=== PATIENT | male | born 1955 | race Caucasian/White ===

== ENCOUNTER 2021-02-20 09:17 | Inpatient (IN) | payer MEDICARE ==
[~2021-02-20] VITALS: Ht 170.1 cm; Wt 63.1 kg
[2021-02-20 09:45] LABS: BASOPHILS # (AUTO) 0.1 10^3/uL (0.0-0.1); BASOPHILS % (AUTO) 0 % (0-10); EOSINOPHILS # (AUTO) 0.3 10^3/uL (0.0-0.3); EOSINOPHILS % (AUTO) 2 % (0-10); HEMATOCRIT 41 % (40-54); HEMOGLOBIN 14.1 g/dL (13.3-17.7); LYMPHOCYTES # (AUTO) 2.6 10^3/uL (1.0-4.0); LYMPHOCYTES % (AUTO) 16 % (12-44); MEAN CORPUSCULAR HEMOGLOBIN 31 pg (25-34); MEAN CORPUSCULAR HGB CONC 35 g/dL (32-36); MEAN CORPUSCULAR VOLUME 90 fL (80-99); MEAN PLATELET VOLUME 8.2 fL (9.0-12.2); MONOCYTES # (AUTO) 1.4 10^3/uL (0.0-1.0); MONOCYTES % (AUTO) 9 % (0-12); NEUTROPHILS # (AUTO) 11.5 10^3/uL (1.8-7.8); NEUTROPHILS % (AUTO) 72 % (42-75); PLATELET COUNT 311 10^3/uL (130-400); WHITE BLOOD COUNT 15.9 10^3/uL (4.3-11.0)
[2021-02-20 09:59] LABS: ALBUMIN 4.5 GM/DL (3.2-4.5); CHLORIDE 96 MMOL/L (98-107); POTASSIUM 4.5 MMOL/L (3.6-5.0); SODIUM 131 MMOL/L (135-145)
[2021-02-20 10:00] LABS: CALCIUM 9.8 MG/DL (8.5-10.1)
[2021-02-20 10:02] LABS: GLUCOSE 97 MG/DL (70-105); TOTAL PROTEIN 8.1 GM/DL (6.4-8.2)
[2021-02-20 10:03] LABS: CARBON DIOXIDE 25 MMOL/L (21-32)
[2021-02-20 10:05] LABS: ALKALINE PHOSPHATASE 107 U/L (40-136); CREATININE SERUM 1.13 MG/DL (0.60-1.30); GFR ESTIMATED 65
[2021-02-20 10:06] LABS: BAND NEUTROPHILS 1 %; BASOPHILS % (MANUAL) 0 %; EOSINOPHILS % (MANUAL) 0 %; LYMPHOCYTES % (MANUAL) 23 %; MONOCYTES % (MANUAL) 2 %; NEUTROPHILS % (MANUAL) 74 %; RBC MORPH NORMAL
[2021-02-20 10:07] LABS: BUN/CREATININE RATIO 12
[2021-02-20 10:08] LABS: ALANINE AMINOTRANSFERASE 16 U/L (0-55); MAGNESIUM 1.9 MG/DL (1.6-2.4); SALICYLATE < 5.0 MG/DL (5.0-20.0)
[2021-02-20 10:26] LABS: BILIRUBIN,URINE NEGATIVE (NEGATIVE); CLARITY,URINE CLEAR; COLOR,URINE YELLOW; GLUCOSE, URINE (UA) NEGATIVE (NEGATIVE); KETONES,URINE 1+ (NEGATIVE); LEUKOCYTE ESTERASE ,URINE NEGATIVE (NEGATIVE); NITRITE,URINE NEGATIVE (NEGATIVE); PROTEIN,URINE NEGATIVE (NEGATIVE)
[2021-02-20 10:27] LABS: ACETAMINOPHEN < 10 UG/ML (10-30)
[2021-02-20 10:28] LABS: TSH (THYROID ANALYZER) 1.45 UIU/ML (0.35-4.94)
[2021-02-20 10:40] LABS: AMPHETAMINE SCREEN, URINE POSITIVE (NEGATIVE); BARBITURATE SCREEN URINE NEGATIVE (NEGATIVE); BENZODIAZEPINES SCREEN URINE NEGATIVE (NEGATIVE); CANNABINOID SCREEN, URINE POSITIVE (NEGATIVE); COCAINE SCREEN URINE NEGATIVE (NEGATIVE); METHADONE STAT NEGATIVE (NEGATIVE); METHAMPHETAMINE SCREEN URINE S POSITIVE (NEGATIVE); OPIATE SCREEN URINE NEGATIVE (NEGATIVE); OXYCODONE STAT NEGATIVE (NEGATIVE); PROPOXYPHENE STAT NEGATIVE (NEGATIVE); TRICYCLIC ANTIDEPRESSANTS SCRE NEGATIVE (NEGATIVE)
[2021-02-20 10:45] LABS: BACTERIA,URINE NEGATIVE /HPF; WBC,URINE RARE /HPF
[2021-02-20] MEDS ORDERED: NS IV 1000 ML 1,000 ML IV SCH (12:45)
--- NOTE | 2021-02-20 13:11 | Diagnostic Imaging Report ---
PROCEDURE: CT head and CT cervical spine without contrast. TECHNIQUE: Multiple contiguous axial images were obtained through the brain and cervical spine without the use of intravenous contrast. Sagittal and coronal reformations through the cervical spine were then performed. Auto Exposure Controls were utilized during the CT exam to meet ALARA standards for radiation dose reduction. INDICATION: Altered mental status. Correlation is made with prior head CT from 12/26/2012. CT HEAD: Ventricular size and sulcal pattern appears stable. There is prominence of the sulci consistent with cerebral and cerebellar atrophy. No sulcal effacement is seen. There is no midline shift. No acute intra-axial or extra-axial hemorrhage is detected. Cisterns are patent. Visualized paranasal sinuses are clear. IMPRESSION: Stable chronic changes. No acute intracranial process is detected. CT cervical spine: There is straightening of the normal cervical lordotic curvature. Minimal retrolisthesis C3 on C4 is noted. There is significant multilevel degenerative disc disease with significant disc space narrowing and marginal spurring at all levels. No fracture seen. Prevertebral tissues are within normal limits. Odontoid is intact. There is a cavitary mass in the left lung apex medially measuring approximately 2 cm in diameter. IMPRESSION: 1. Cervical spondylosis. No acute fractures identified. 2. 2 cm cavitary mass in the left lung apex. Dedicated CT chest would be recommended for further characterization. Dictated by: Dictated on workstation # [id number]
[2021-02-20] MEDS ORDERED: NS 100 ML (IVPB) BAG IV ONE (13:15)
[2021-02-20] MEDS ORDERED: IOHEXOL 350 MG/ML 100 ML (OMNIPAQUE 350) VIAL IV ONE (13:15)
[2021-02-20] MEDS ORDERED: HOLD METFORMIN - RECEIVED CONTRAST 20 ML VIAL IV SCH (13:15)
[2021-02-20] MEDS ORDERED: CATHETER FLUSH 10 ML SYR IV PRN (13:15)
--- NOTE | 2021-02-20 13:16 | Diagnostic Imaging Report ---
PROCEDURE: CT angiography of the head and CT angiography of the neck with and without contrast. TECHNIQUE: Contiguous noncontrast images were obtained from the skull base through the vertex. After intravenous contrast administration, helical CT angiography of the neck was performed. Source data was reformatted into 3D MIP projections. Delayed post contrast acquisition was also obtained. Auto Exposure Controls were utilized during the CT exam to meet ALARA standards for radiation dose reduction. INDICATION: Dizziness. Double vision. COMPARISON: CT head performed the same day. FINDINGS: CTA Neck: The visualized portions of the aortic arch demonstrate no evidence of aneurysm or dissection. There is conventional branching pattern of the great vessels of the aorta. The brachiocephalic artery is normal in course and caliber. The right and left common carotid origins are unremarkable. The origin of the left subclavian artery is patent. The common carotid arteries and internal carotid arteries demonstrate a normal course. There is calcified atherosclerotic plaque in the bilateral carotid bulbs and proximal internal carotid arteries without flow-limiting stenosis. No evidence of dissection in the carotid systems. The external carotid arteries are patent and unremarkable. The right vertebral artery is dominant. The origin of the right vertebral artery is seen and is unremarkable. The origin of the left vertebral artery is directly off the aorta. There is no focal stenosis seen within the neck. There is no dissection. The vertebral arteries are well visualized to up to the level of the basilar artery. The osseous structures of the cervical spine are unremarkable. A cavitary lesion is seen in the left apex measuring 2.7 x 1.5 cm. CTA brain: The intracranial portion of the bilateral ICAs have a normal appearance without focal stenosis or aneurysm. No stenosis is seen in the bilateral anterior, middle, and posterior cerebral arteries. Hypoplastic A1 segment is noted on the right. No evidence of aneurysm the [place]. The left vertebral artery ends in PICA. The right vertebral artery is well-visualized to the basilar artery. Both the right and left PICA arteries are identified. The basilar artery is normal in course and caliber. The terminal branch vessels including the superior cerebellar arteries unremarkable. IMPRESSION: 1. No stenosis or aneurysm in the [place]. No evidence of large vessel occlusion. 2. No stenosis or dissection the bilateral carotid and vertebral arteries. 3. Cavitary lesion in the left lung apex measuring 2.7 x [address] of the chest to further evaluate. Dictated by: Dictated on workstation # [id number]
--- NOTE | 2021-02-20 14:33 | ED Neurological Problem ---
General Chief Complaint: Altered Mental Status Stated Complaint: AMS Nursing Triage Note: ARRIVES VIA EMS FROM PATIENTS CAR, WHERE HE STATES HE LIVES. PATIENT C/O INCREASED BILATERAL EXTREMITY PAIN AND WEAKNESS WELL VOICE CHANGES HE STATES HAVE BEEN GETTING PROGRESSIVLY WORSE OVER THE LASST FEW WEEKS/MONTHS. Source: patient, family, old records Exam Limitations: clinical condition History of Present Illness Date Seen by Provider: Feb 20, 2021 Time Seen by Provider: 09:23 Initial Comments This 65-year-old man presents to the emergency room via EMS after being found in his car outside his brother's house this morning. He reportedly has altered mental status from his baseline and is less alert. He is unable to get up and walk on scene. Through a series of phone calls and further investigation it was discovered he had been living with his granddaughter until a few days ago. He then went to visit his brother where he began using methamphetamine. Patient does admit to having a methamphetamine addiction. 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 His granddaughter states he is able to sometimes walk with assistive devices but uses a wheelchair much of the time. He makes mention of possibly wanting to enter a long term or assisted living facility where he can get more help. EMS remarks that blood sugar is 104. Patient states he has difficulty with focusing cognitively and with his vision. Patient also complains of headache and states he fell off the porch a few days ago and bumped his right parietal region. He denies any neck pain. See nursing notes for more information about his social circumstances. Allergies and Home Medications Allergies Coded Allergies: No Known Drug Allergies (Unverified , 02/20/21) Patient Home Medication List Home Medication List Reviewed: Yes Review of Systems Review of Systems Constitutional: see HPI, weakness Eyes: No Symptoms Reported Ears, Nose, Mouth, Throat: no symptoms reported Respiratory: no symptoms reported Cardiovascular: no symptoms reported Gastrointestinal: no symptoms reported Genitourinary: no symptoms reported Musculoskeletal: no symptoms reported Skin: no symptoms reported Psychiatric/Neurological: See HPI Endocrine: No Symptoms Reported Hematologic/Lymphatic: No Symptoms Reported Past Pwuellk-Uogmrb-Ddwnvz Hx Patient Social History Tobacco Use?: Yes Tobacco type used: Cigarettes Use of E-Cig and/or Vaping dev: No Substance use?: Yes Substance type: Methamphetamine, Marijuana Alcohol Use?: No Pt feels they are or have been: No Immunizations Up To Date Influenza Vaccine Up-to-Date: No; Not Current First/Initial COVID19 Vaccinat: unk date Second COVID19 Vaccination Gaudencio: unk date COVID19 Vaccine Grade Recorder: unk Past Medical History Surgeries: Yes Tonsillectomy Respiratory: Yes COPD Cardiac: Yes Hypertension Neurological: Yes (Naima's chorea) Neuropathy Genitourinary: No Gastrointestinal: Yes Gastroesophageal Reflux Musculoskeletal: No Endocrine: No HEENT: No Cancer: No Did You Recieve Any Treatments: No Psychosocial: Yes (Polysubstance abuse) Depression Integumentary: No Physical Exam Vital Signs Vital Signs - First Documented 02/20/21 09:25 Temp 36.3 Pulse 90 Resp 20 B/P (MAP) 198/110 (139) Pulse Ox 97 O2 Delivery Room Air Capillary Refill : Less Than 3 Seconds Height, Weight, BMI Height: '" Weight: lbs. oz. kg; 23.00 BMI Method: General Appearance: WD/WN, mild distress, thin HEENT: PERRL/EOMI, other (Mucous membranes moist. 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 He does not appear to have any specific focal neurologic deficits. He does have some trouble with the quzyxr-[id number] test but he is not following instructions during that exam and is very emotionally labile. Some high amplitude dystonic movements are noted consistent with Naima's chorea.) Crainal Nerves: normal hearing, PERRL, abnormal speech (Speech dulled or slurred as compared to baseline per patient report) Coordination/Gait: ABN nose to finger (R), ABN nose to finger (L) Motor/Sensory: no sensory deficit Skin: normal color, warm/dry Progress/Results/Core Measures Results/Orders Lab Results Laboratory Tests Test 02/20/21 09:31 02/20/21 10:19 02/20/21 14:20 Range/Units White Blood Count 15.9 H 4.3-11.0 10^3/uL Red Blood Count 4.51 4.30-5.52 10^6/uL Hemoglobin 14.1 13.3-17.7 g/dL Hematocrit 41 40-54 % Mean Corpuscular Volume 90 80-99 fL Mean Corpuscular Hemoglobin 31 25-34 pg Mean Corpuscular Hemoglobin Concent 35 32-36 g/dL Red Cell Distribution Width 14.0 10.0-14.5 % Platelet Count 311 130-400 10^3/uL Mean Platelet Volume 8.2 L 9.0-12.2 fL Immature Granulocyte % (Auto) 1 % Neutrophils (%) (Auto) 72 42-75 % Lymphocytes (%) (Auto) 16 12-44 % Monocytes (%) (Auto) 9 0-12 % Eosinophils (%) (Auto) 2 0-10 % Basophils (%) (Auto) 0 0-10 % Neutrophils # (Auto) 11.5 H 1.8-7.8 10^3/uL Lymphocytes # (Auto) 2.6 1.0-4.0 10^3/uL Monocytes # (Auto) 1.4 H 0.0-1.0 10^3/uL Eosinophils # (Auto) 0.3 0.0-0.3 10^3/uL Basophils # (Auto) 0.1 0.0-0.1 10^3/uL Immature Granulocyte # (Auto) 0.1 0.0-0.1 10^3/uL Neutrophils % (Manual) 74 % Lymphocytes % (Manual) 23 % Monocytes % (Manual) 2 % Eosinophils % (Manual) 0 % Basophils % (Manual) 0 % Band Neutrophils 1 % Blood Morphology Comment NORMAL Carboxyhemoglobin 4.5 H 0.5-2.5 % Sodium Level 131 L 135-145 MMOL/L Potassium Level 4.5 3.6-5.0 MMOL/L Chloride Level 96 L 98-107 MMOL/L Carbon Dioxide Level 25 21-32 MMOL/L Anion Gap 10 5-14 MMOL/L Blood Urea Nitrogen 13 7-18 MG/DL Creatinine 1.13 0.60-1.30 MG/DL Estimat Glomerular Filtration Rate 65 BUN/Creatinine Ratio 12 Glucose Level 97 70-105 MG/DL Calcium Level 9.8 8.5-10.1 MG/DL Corrected Calcium 9.4 8.5-10.1 MG/DL Magnesium Level 1.9 1.6-2.4 MG/DL Total Bilirubin 1.0 0.1-1.0 MG/DL Aspartate Amino Transf (AST/SGOT) 29 5-34 U/L Alanine Aminotransferase (ALT/SGPT) 16 0-55 U/L Alkaline Phosphatase 107 40-136 U/L C-Reactive Protein High Sensitivity 2.21 H 0.00-0.50 MG/DL Total Protein 8.1 6.4-8.2 GM/DL Albumin 4.5 3.2-4.5 GM/DL TSH [place] Testing 1.45 0.35-4.94 UIU/ML Salicylates Level < 5.0 L 5.0-20.0 MG/DL Acetaminophen Level < 10 L 10-30 UG/ML Serum Alcohol < 10 <10 MG/DL Urine Color YELLOW Urine Clarity CLEAR Urine pH 6.0 5-9 Urine Specific [place] 1.010 L 1.016-1.022 Urine Protein NEGATIVE NEGATIVE Urine Glucose (UA) NEGATIVE NEGATIVE Urine Ketones 1+ H NEGATIVE Urine Nitrite NEGATIVE NEGATIVE Urine Bilirubin NEGATIVE NEGATIVE Urine Urobilinogen 1.0 < = 1.0 MG/DL Urine Leukocyte Esterase NEGATIVE NEGATIVE Urine RBC (Auto) NEGATIVE NEGATIVE Urine RBC NONE /HPF Urine WBC RARE /HPF Urine Crystals NONE /LPF Urine Bacteria NEGATIVE /HPF Urine Casts NONE /LPF Urine Mucus NEGATIVE /LPF Urine Culture Indicated NO Urine Opiates Screen NEGATIVE NEGATIVE Urine Oxycodone Screen NEGATIVE NEGATIVE Urine Methadone Screen NEGATIVE NEGATIVE Urine Propoxyphene Screen NEGATIVE NEGATIVE Urine Barbiturates Screen NEGATIVE NEGATIVE Ur Tricyclic Antidepressants Screen NEGATIVE NEGATIVE Urine Phencyclidine Screen NEGATIVE NEGATIVE Urine Amphetamines Screen POSITIVE H NEGATIVE Urine Methamphetamines Screen POSITIVE H NEGATIVE Urine Benzodiazepines Screen NEGATIVE NEGATIVE Urine Cocaine Screen NEGATIVE NEGATIVE Urine Cannabinoids Screen POSITIVE H NEGATIVE My Orders Orders - CANDELARIA ROSAS MD Cbc With Automated Diff (02/20/21 09:25) Comprehensive Metabolic Panel (02/20/21:25) Ua Culture If Indicated (02/20/21:25) Ed Iv/Invasive Line Start (02/20/21:25) Acetaminophen (02/20/21 09:29) Alcohol (02/20/21:29) Drug Screen Stat (Urine) (02/20/21:) Magnesium (02/20/21:29) Salicylate (02/20/21:29) Thyroid Analyzer (12/16/21 09:29) Carboxyhemoglobin (02/20/21 09:29) Manual Differential (02/20/21 09:31) Hs C Reactive Protein (02/20/21 11:14) Ct Head/Cervical Spine Wo (02/20/21 12:30) Ns Iv 1000 Ml (Sodium Chloride 0.9%) (02/20/21 12:45) Ct Angio Head/Neck (02/20/21 12:39) Iohexol Injection (Omnipaque 350 Mg/Ml 1 (02/20/21 13:15) Received Contrast (Hold Metformin- Contr (02/20/21 13:15) Sodium Chloride Flush (Catheter Flush Sy (02/20/21 13:15) Ns (Ivpb) (Sodium Chloride 0.9% Ivpb Bag (02/20/21 13:15) Tb Gold Quantiferon Plus (02/20/21 14:16) Ct Chest Wo (02/20/21 14:28) Medications Given in ED Current Medications Medications Dose Ordered Sig/Tiera Route Start Time Stop Time Status Last Admin Dose Admin Iohexol 75 ml ONCE ONCE IV 02/20/21 13:15 02/20/21 13:16 DC 02/20/21 13:05 75 ML Sodium Chloride 10 ml NEEDED PRN IV 02/20/21 13:15 02/20/21 13:05 10 ML Sodium Chloride 100 ml ONCE ONCE IV 02/20/21 13:15 02/20/21 13:16 DC 02/20/21 13:05 80 ML Vital Signs/I&O 02/20/21 09:25 Temp 36.3 Pulse 90 Resp 20 B/P (MAP) 198/110 (139) Pulse Ox 97 O2 Delivery Room Air Blood Pressure Mean: 139 Progress Progress Note #1: Time: 14:48 Progress Note Lab evaluation was relatively unremarkable except for leukocytosis of uncertain etiology. CRP was low and he was afebrile suggesting infection is not a likely cause of his leukocytosis. Patient's cognition was improving with time. IV fluids were infused. Patient is extremely emotionally labile and quite tearful at times. He admits to having a methamphetamine addiction and wants help. He thinks he needs to get away from his brothers as they are the source of his methamphetamine use. He would like some addiction treatment services and is very tearful about this. I am uncertain about his functional capacity in general and I am not sure it is safe for him to return home at this time. It is unclear how much of this is due to underlying Randall's and how much is related to methamphetamine use. CT of the head and cervical spine was unremarkable for acute injury. Because of the neurologic symptoms described, this was followed with CT angiogram of the head and neck which likewise showed no serious acute abnormalities. There was a cavitary lesion incidentally noted in the left upper lung on the CT angiogram of the neck. This is being further evaluated with CT of the chest. Case was reviewed with Dr. Lang. She and I agree admission in the short-term is a good idea to ensure stability for this patient. A QuantiFERON gold test is being run to evaluate for tuberculosis. He will be kept in precautions until this result is known. I did discuss CODE STATUS with the patient and he wishes to have a DNR status. Patient was noted to be rather hypertensive. He was given a dose of lisinopril from his home med supply. 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 I tend to agree with him given his history of Naima's chorea combined with polysubstance abuse. Progress Note #2: Time: 15:[address] scan of the chest favors sequela of prior infectious process rather than susp icion for active disease. I discussed the patient's situation and plan with his granddaughter Deepthi. She has reservations about him going to a long term because she believes they can provide him with quality care at her home and she is concerned about the care he might get in a long term. I have informed her that conversations about the best care and ancillary support services can be discussed with social work. Diagnostic Imaging Diagonstic Imaging: CT Plain Films/CT/US/NM/MRI: c-spine, head Comments CT head and cervical spine viewed by me and report reviewed. See report below: NAME: MARIA GUADALUPE CORTEZ MED REC#: [id number] PT STATUS: REG ER : 1955 PHYSICIAN: CANDELARIA ROSAS MD ADMIT DATE: 02/20/21/ER Draft Date of Exam:02/20/21 CT HEAD/CERVICAL SPINE WO PROCEDURE: CT head and CT cervical spine without contrast. TECHNIQUE: Multiple contiguous axial images were obtained through the brain and cervical spine without the use of intravenous contrast. Sagittal and coronal reformations through the cervical spine were then performed. Auto Exposure Controls were utilized during the CT exam to meet ALARA standards for radiation dose reduction. INDICATION: Altered mental status. Correlation is made with prior head CT from 12/26/2012. CT HEAD: Ventricular size and sulcal pattern appears stable. There is prominence of the sulci consistent with cerebral and cerebellar atrophy. No sulcal effacement is seen. There is no midline shift. No acute intra-axial or extra-axial hemorrhage is detected. Cisterns are patent. Visualized paranasal sinuses are clear. IMPRESSION: Stable chronic changes. No acute intracranial process is detected. CT cervical spine: There is straightening of the normal cervical lordotic curvature. Minimal retrolisthesis C3 on C4 is noted. There is significant multilevel degenerative disc disease with significant disc space narrowing and marginal spurring at all levels. No fracture seen. Prevertebral tissues are within normal limits. Odontoid is intact. There is a cavitary mass in the left lung apex medially measuring approximately 2 cm in diameter. IMPRESSION: 1. Cervical spondylosis. No acute fractures identified. 2. 2 cm cavitary mass in the left lung apex. Dedicated CT chest would be recommended for further characterization. Dictated on workstation # [id number] Dict: 02/20/21 1303 Trans: 02/20/[address] [facility] [id number] Interpreted by: ANJUM SEGURA MD Diagonstic Imaging: CT Plain Films/CT/US/NM/MRI: other (Angiogram head and neck) Comments CT angiogram head and neck viewed by me and report reviewed. See report below: NAME: MARIA GUADALUPE CORTEZ [facility] REC#: [id number] PT STATUS: REG ER : 1955 PHYSICIAN: CANDELARIA ROSAS MD ADMIT DATE: 02/20/21/ER Signed Date of Exam:02/20/21 CT ANGIO HEAD/NECK PROCEDURE: CT angiography of the head and CT angiography of the neck with and without contrast. TECHNIQUE: Contiguous noncontrast images were obtained from the skull base through the vertex. After intravenous contrast administration, helical CT angiography of the neck was performed. Source data was reformatted into 3D MIP projections. Delayed post contrast acquisition was also obtained. Auto Exposure Controls were utilized during the CT exam to meet ALARA standards for radiation dose reduction. INDICATION: Dizziness. Double vision. COMPARISON: CT head performed the same day. FINDINGS: CTA Neck: The visualized portions of the aortic arch demonstrate no evidence of aneurysm or dissection. There is conventional branching pattern of the great vessels of the aorta. The brachiocephalic artery is normal in course and caliber. The right and left common carotid origins are unremarkable. The origin of the left subclavian artery is patent. The common carotid arteries and internal carotid arteries demonstrate a normal course. There is calcified atherosclerotic plaque in the bilateral carotid bulbs and proximal internal carotid arteries without flow-limiting stenosis. No evidence of dissection in the carotid systems. The external carotid arteries are patent and unremarkable. The right vertebral artery is dominant. The origin of the right vertebral artery is seen and is unremarkable. The origin of the left vertebral artery is directly off the aorta. There is no focal stenosis seen within the neck. There is no dissection. The vertebral arteries are well visualized to up to the level of the basilar artery. The osseous structures of the cervical spine are unremarkable. A cavitary lesion is seen in the left apex measuring 2.7 x 1.5 cm. CTA brain: The intracranial portion of the bilateral ICAs have a normal appearance without focal stenosis or aneurysm. No stenosis is seen in the bilateral anterior, middle, and posterior cerebral arteries. Hypoplastic A1 segment is noted on the right. No evidence of aneurysm the [place]. The left vertebral artery ends in PICA. The right vertebral artery is well-visualized to the basilar artery. Both the right and left PICA arteries are identified. The basilar artery is normal in course and caliber. The terminal branch vessels including the superior cerebellar arteries unremarkable. IMPRESSION: 1. No stenosis or aneurysm in the [place]. No evidence of large vessel occlusion. 2. No stenosis or dissection the bilateral carotid and vertebral arteries. 3. Cavitary lesion in the left lung apex measuring 2.7 x [address] of the chest to further evaluate. Dictated by: Dictated on workstation # [id number] Dict: 02/20/21 1308 Trans: 02/20/212 [facility] [id number] Interpreted by: DAVE CHÁVEZ DO Electronically signed by: DAVE CHÁVEZ DO 02/20/212 Reviewed: Reviewed by Me Diagonstic Imaging: CT Plain Films/CT/US/NM/MRI: chest Comments NAME: MARIA GUADALUPE CORTEZ [facility] REC#: [id number] PT STATUS: REG ER : 1955 PHYSICIAN: CANDELARIA ROSAS MD ADMIT DATE: 02/20/21/ER Draft Date of Exam:02/20/21 CT CHEST WO EXAMINATION: CT chest without contrast. TECHNIQUE: Multiple contiguous axial images were obtained through the chest without the use of intravenous contrast. All CT scans use one or more of the following dose optimizing techniques: Automated exposure control, MA and/or KvP adjustment based on patient size and exam type or iterative reconstruction. HISTORY: Cavitary lung lesion. COMPARISON: None available. FINDINGS: There is no edema or pneumonia. No pleural effusion. No pneumothorax. There is a cavity in the left apex measuring 1.7 x 2.3 cm. There is mild wall thickening at the cavity. There are internal septations. Lungs are mildly emphysematous. There is no axillary or supraclavicular lymphadenopathy. There is no mediastinal lymphadenopathy. Heart size is normal. There are mild coronary artery calcifications. No pericardial effusion. Aorta is normal in caliber. Limited views of the upper abdomen are unremarkable. There is excreted contrast in the collecting systems. There are no suspicious osseous lesions. IMPRESSION: 1. Left apical cavity with mild wall thickening and internal septations. This is favored to represent sequela of a prior infection. 4-8 week follow-up is recommended to ensure stability. Dictated on workstation # [id number] Dict: 02/20/21 1451 Trans: 02/20/21 1455 [id number] Interpreted by: PETEY ARGUELLO MD Reviewed: Reviewed by Me Departure Communication (Admissions) Time/Spoke to Admitting Phy: 14:10 Dr. 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
--- NOTE | 2021-02-20 14:56 | Diagnostic Imaging Report ---
EXAMINATION: CT chest without contrast. TECHNIQUE: Multiple contiguous axial images were obtained through the chest without the use of intravenous contrast. All CT scans use one or more of the following dose optimizing techniques: Automated exposure control, MA and/or KvP adjustment based on patient size and exam type or iterative reconstruction. HISTORY: Cavitary lung lesion. COMPARISON: None available. FINDINGS: There is no edema or pneumonia. No pleural effusion. No pneumothorax. There is a cavity in the left apex measuring 1.7 x 2.3 cm. There is mild wall thickening at the cavity. There are internal septations. Lungs are mildly emphysematous. There is no axillary or supraclavicular lymphadenopathy. There is no mediastinal lymphadenopathy. Heart size is normal. There are mild coronary artery calcifications. No pericardial effusion. Aorta is normal in caliber. Limited views of the upper abdomen are unremarkable. There is excreted contrast in the collecting systems. There are no suspicious osseous lesions. IMPRESSION: 1. Left apical cavity with mild wall thickening and internal septations. This is favored to represent sequela of a prior infection. 4-8 week follow-up is recommended to ensure stability. Dictated by: Dictated on workstation # [id number]
[2021-02-20 16:04] VITALS: BP 127/78
[2021-02-20] MEDS: NS IV 1000 ML 1,000 ML IV SCH (18:15)
[2021-02-20] MEDS ORDERED: FLU QUADRIvalent (3YOA+) 60 mcg/0.5 ml 2021-22(AFLURIA) IM ONE (18:30)
[2021-02-20 20:00] VITALS: BP 160/73
[2021-02-20 23:56] VITALS: BP 153/68
[2021-02-21 04:03] VITALS: BP 173/73
[2021-02-21] MEDS: NS IV 1000 ML 1,000 ML IV SCH ×2 (04:03→16:55)
[2021-02-21 08:00] VITALS: BP 185/86
--- NOTE | 2021-02-21 09:48 | History & Physical ---
HPI History of Present Illness: 65 yo male, able to give some history but unable to give complete story. He states he is in the hospital because he was using drugs, but isn't able to say when he was last using drugs or much else about his condition. He admits occasional cough, night sweats and feeling feverish, he says he doesn't know if he has lost weight. He denies any know history of tuberculosis. Per ER notes, his family found him altered in his car after he had been with another family member and reportedly using methamphetamines. 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 Per patient, when asked about nursing facility, he did agree he wanted to go, states he doesn't want to burden his granddaughter, and he says he uses a wheelchair and is unable to transfer himself, but when asked how he was f unctioning and who was helping him for things like going to the bathroom, he stated "I don't know". Date seen by provider: Feb 21, 2021 Time Seen by Provider: 09:45 Attending Physician Umesh Lang MD PCP Consult Date of Admission Feb 20, 2021 at 14:58 Home Medications Home Medications Reviewed patient Home Medication Reconciliation performed by pharmacy medication reconciliations sugarcane research technician and/or nursing. Patients Allergies have been reviewed. Allergies Coded Allergies: No Known Drug Allergies (Unverified , 02/20/21) THJ-Apfisa-Sgmzan Hx Patient Social History Smoking Status: Current Everyday Smoker Alcohol Use?: Yes Substance type: Methamphetamine, Marijuana Tobacco type used: Cigarettes Have you traveled recently?: No Immunizations Up To Date Influenza Vaccine Up-to-Date: No; Not Current First/Initial COVID19 Vaccinat: unk date Second COVID19 Vaccination Gaudencio: unk date Third COVID19 Vaccination Date: unk date COVID19 Vaccine Instructor Modeling: unk Past Medical History PMHx: Chestnut's disease COPD HTN Chronic pain Anxiety Depression SurgHx: Tonsillectomy Family Medical History Other Significan Family Hx: Unable to obtain due to patient condition Review of Systems ([facility]) Constitutional: fever, weakness; No weight loss Respiratory: cough (baseline with COPD) Cardiovascular: No chest pain Gastrointestinal: No abdominal pain Reviewed Test Results Reviewed Test Results Lab Laboratory Tests Test 02/20/21 09:31 02/20/21 10:19 02/20/21 14:20 Range/Units White Blood Count 15.9 H 4.3-11.0 10^3/uL Red Blood Count 4.51 4.30-5.52 10^6/uL Hemoglobin 14.1 13.3-17.7 g/dL Hematocrit 41 40-54 % Mean Corpuscular Volume 90 80-99 fL Mean Corpuscular Hemoglobin 31 25-34 pg Mean Corpuscular Hemoglobin Concent 35 32-36 g/dL Red Cell Distribution Width 14.0 10.0-14.5 % Platelet Count 311 130-400 10^3/uL Mean Platelet Volume 8.2 L 9.0-12.2 fL Immature Granulocyte % (Auto) 1 % Neutrophils (%) (Auto) 72 42-75 % Lymphocytes (%) (Auto) 16 12-44 % Monocytes (%) (Auto) 9 0-12 % Eosinophils (%) (Auto) 2 0-10 % Basophils (%) (Auto) 0 0-10 % Neutrophils # (Auto) 11.5 H 1.8-7.8 10^3/uL Lymphocytes # (Auto) 2.6 1.0-4.0 10^3/uL Monocytes # (Auto) 1.4 H 0.0-1.0 10^3/uL Eosinophils # (Auto) 0.3 0.0-0.3 10^3/uL Basophils # (Auto) 0.1 0.0-0.1 10^3/uL Immature Granulocyte # (Auto) 0.1 0.0-0.1 10^3/uL Neutrophils % (Manual) 74 % Lymphocytes % (Manual) 23 % Monocytes % (Manual) 2 % Eosinophils % (Manual) 0 % Basophils % (Manual) 0 % Band Neutrophils 1 % Blood Morphology Comment NORMAL Carboxyhemoglobin 4.5 H 0.5-2.5 % Sodium Level 131 L 135-145 MMOL/L Potassium Level 4.5 3.6-5.0 MMOL/L Chloride Level 96 L 98-107 MMOL/L Carbon Dioxide Level 25 21-32 MMOL/L Anion Gap 10 5-14 MMOL/L Blood Urea Nitrogen 13 7-18 MG/DL Creatinine 1.13 0.60-1.30 MG/DL Estimat Glomerular Filtration Rate 65 BUN/Creatinine Ratio 12 Glucose Level 97 70-105 MG/DL Calcium Level 9.8 8.5-10.1 MG/DL Corrected Calcium 9.4 8.5-10.1 MG/DL Magnesium Level 1.9 1.6-2.4 MG/DL Total Bilirubin 1.0 0.1-1.0 MG/DL Aspartate Amino Transf (AST/SGOT) 29 5-34 U/L Alanine Aminotransferase (ALT/SGPT) 16 0-55 U/L Alkaline Phosphatase 107 40-136 U/L C-Reactive Protein High Sensitivity 2.21 H 0.00-0.50 MG/DL Total Protein 8.1 6.4-8.2 GM/DL Albumin 4.5 3.2-4.5 GM/DL TSH Rice Testing 1.45 0.35-4.94 UIU/ML Salicylates Level < 5.0 L 5.0-20.0 MG/DL Acetaminophen Level < 10 L 10-30 UG/ML Serum Alcohol < 10 <10 MG/DL Urine Color YELLOW Urine Clarity CLEAR Urine pH 6.0 5-9 Urine Specific [place] 1.010 L 1.016-1.022 Urine Protein NEGATIVE NEGATIVE Urine Glucose (UA) NEGATIVE NEGATIVE Urine Ketones 1+ H NEGATIVE Urine Nitrite NEGATIVE NEGATIVE Urine Bilirubin NEGATIVE NEGATIVE Urine Urobilinogen 1.0 < = 1.0 MG/DL Urine Leukocyte Esterase NEGATIVE NEGATIVE Urine RBC (Auto) NEGATIVE NEGATIVE Urine RBC NONE /HPF Urine WBC RARE /HPF Urine Crystals NONE /LPF Urine Bacteria NEGATIVE /HPF Urine Casts NONE /LPF Urine Mucus NEGATIVE /LPF Urine Culture Indicated NO Urine Opiates Screen NEGATIVE NEGATIVE Urine Oxycodone Screen NEGATIVE NEGATIVE Urine Methadone Screen NEGATIVE NEGATIVE Urine Propoxyphene Screen NEGATIVE NEGATIVE Urine Barbiturates Screen NEGATIVE NEGATIVE Ur Tricyclic Antidepressants Screen NEGATIVE NEGATIVE Urine Phencyclidine Screen NEGATIVE NEGATIVE Urine Amphetamines Screen POSITIVE H NEGATIVE Urine Methamphetamines Screen POSITIVE H NEGATIVE Urine Benzodiazepines Screen NEGATIVE NEGATIVE Urine Cocaine Screen NEGATIVE NEGATIVE Urine Cannabinoids Screen POSITIVE H NEGATIVE Radiology CT head and cervical spine 02/20/21: IMPRESSION: Stable chronic changes. No acute intracranial process is detected. IMPRESSION: 1. Cervical spondylosis. No acute fractures identified. 2. 2 cm cavitary mass in the left lung apex. Dedicated CT chest would be saul mmended for further characterization. CT chest 02/20/21: IMPRESSION: 1. Left apical cavity with mild wall thickening and internal septations. This is favored to represent sequela of a prior infection. 4-8 week follow-up is recommended to ensure stability. CTA head 02/20/21: IMPRESSION: 1. No stenosis or aneurysm in the [place]. No evidence of large vessel occlusion. 2. No stenosis or dissection the bilateral carotid and vertebral arteries. 3. Cavitary lesion in the left lung apex measuring 2.7 x [address] of the chest to further evaluate. Physical Exam-([facility]) Physical Exam Vital Signs VS - Last 72 Hours, by Label 02/20/21 02/20/21 02/20/21 02/20/21 09:25 16:04 16:05 16:32 Temp 36.3 37.3 36.0 Pulse 90 68 75 Resp 20 16 18 B/P (MAP) 198/110 (139) 127/78 (94) 162/77 Pulse Ox 97 98 98 98 O2 Delivery Room Air Room Air Room Air Room Air 02/20/21 02/20/21 02/20/21 02/20/21 18:21 19:00 20:00 20:00 Pulse 76 68 65 Resp 18 B/P (MAP) 160/73 (102) Pulse Ox 98 98 O2 Delivery Room Air Room Air 02/20/21 02/21/21 02/21/21 02/21/21 23:56 01:00 04:03 07:00 Temp 37.3 36.8 Pulse 63 55 60 55 Resp 18 18 B/P (MAP) 153/68 (96) 173/73 (106) Pulse Ox 100 96 O2 Delivery Room Air Room Air 02/21/21 02/21/21 02/21/21 08:00 12:00 12:36 Temp 36.7 36.9 Pulse 53 57 54 Resp 18 18 B/P (MAP) 185/86 (119) 163/73 (103) Pulse Ox 96 98 O2 Delivery Room Air Room Air Capillary Refill : Less Than 3 Seconds General Appearance: no apparent distress HEENT: PERRL/EOMI Respiratory: lungs clear, no respiratory distress Cardiovascular: regular rate, rhythm, no murmur Gastrointestinal: normal bowel sounds, non tender, soft Extremities: no pedal edema Neurologic/Psychiatric: other (CN II-XII intact, has difficulty with abducting left arm but is able with some effort. Laying in awkward position with head tilted markedly to right and is unable to straighten well. 4/5 strength in raising legs off of bed.) Skin: warm/dry Assessment/Plan Assessment/Plan Admission Status: Observation (1) Altered mental status Status: Acute Assessment & Plan: Suspect secondary to substance use, appears to be improving, unclear what baseline is, but he is able to state name, location and basically why he is in the hospital this morning. Qualifiers: Qualified Codes: R41.82 - Altered mental status, unspecified (2) COPD (chronic obstructive pulmonary disease) Status: Chronic Assessment & Plan: No evidence of acute exacerbation, monitor, resume home albuterol (3) Hypertension Status: Chronic Assessment & Plan: Resume home lisinopril Qualifiers: Qualified Codes: I10 - Essential (primary) hypertension (4) Anxiety Status: Chronic Assessment & Plan: Hold home alprazolam for now given altered mental status (5) Chronic pain Status: Chronic Assessment & Plan: Holding home hydrocodone due to altered mental status (6) Huntingtons chorea Status: Acute (7) Polysubstance abuse Status: Acute Assessment & Plan: Urine drug screen positive for methamphetamines on admit. Prescribed opiates and benzodiazepines outpatient. (8) Cavitary lesion of lung Status: Acute Assessment & Plan: Unclear etiology, may be post-infectious, but given risks for tb and some symptoms, will check sputum and quantiferon gold. (9) Generalized weakness Status: Chronic Assessment & Plan: PT, he is still reporting interest in [facility] nursing facility placement, discussed with licensed clinical social worker. (10) DVT prophylaxis Status: Acute Assessment & Plan: Enoxaparin UMESH LANG MD Feb 21, 2021 09:48
[2021-02-21 12:00] VITALS: BP 163/73
[2021-02-21] MEDS ORDERED: GBPN600T PO (13:53)
[2021-02-21] MEDS ORDERED: OXYB-52 PO (13:53)
[2021-02-21] MEDS ORDERED: MELO15TA39 PO (13:53)
[2021-02-21] MEDS ORDERED: ALPR0.5T7 PO (13:53)
[2021-02-21] MEDS ORDERED: HYDR-3817 PO (13:53)
[2021-02-21] MEDS ORDERED: LISI10TA25 PO (13:53)
[2021-02-21] MEDS ORDERED: TRAZ150T72 PO (13:53)
[2021-02-21] MEDS ORDERED: ALBU18HF2 INH (13:53)
[2021-02-21] MEDS ORDERED: OMEP20CA18 PO (13:53)
[2021-02-21] MEDS ORDERED: RT-ALBUTEROL SULF 2.5 MG/3 ML PRE-MIX VIAL INH PRN (15:00)
[2021-02-21 15:25] VITALS: BP 183/81
--- NOTE | 2021-02-21 15:35 | Physical Therapy Evaluation ---
PT Evaluation-General Medical Diagnosis Admission Date Feb 20, 2021 at 14:58 Medical Diagnosis: AMS, COPD Onset Date: Feb 20, 2021 Therapy Diagnosis Therapy Diagnosis: impaired mobility, strength, endurance, balance Precautions Precautions/Isolations: Airborne Isolation, Fall Prevention, Pressure Ulcer Referral Physician: Rickey Reason for Referral: Evaluation/Treatment Medical History Additional Medical History PMHx: Schleicher's disease COPD HTN Chronic pain Anxiety Depression SurgHx: Tonsillectomy Reviewed History: Yes Social History unknown Prior Prior Level of Function SCALE: Activities may be completed with or without assistive devices. 3-Eoohihsjte-mmczprt completes the activity by him/herself with no assistance from a helper. 5-Set-up or Clean-up Assistance-helper sets up or cleans up; patient completes activity. [place] assists only prior to or following the activity. 4-Supervision or Touching Assistance-helper provides verbal cues and/or touching/steadying and/or contact guard assistance as patient completes activity. Assistance may be provided throughout the activity or intermittently. 3-Partial/Moderate Assistance-helper does LESS THAN HALF the effort. [place] lifts, holds or supports trunk or limbs, but provides less than half the effort. 2-Substantial/Maximal Assistance-helper does MORE THAN HALF the effort. [place] lifts or holds trunk or limbs and provides more than half the effort. 2-Cllmkqyoj-rcfygx does ALL the effort. Patient does none of the effort to complete the activity. Or, the assistance of 2 or more helpers is required for the patient to complete the activity. If activity was not attempted, code reason: 7-Patient Refused. 9-Not Applicable-not attempted and the patient did not perform the activity before the current illness, exacerbation or injury. 10-Not Attempted due to Environmental Limitations-(lack of equipment, weather restraints, etc.). 88-Not Attempted due to Medical Conditions or Safety Concerns. unknown PT Evaluation-Current Subjective Patient sitting EOB pre tx, agrees to PT, has unrated pain in feet. Nurse aide is currently changing him and the bed due to urine. Pt/Family Goals none stated Objective Patient Orientation: Person, Confused, Mumbles Attachments: IV ROM/Strength ROM Lower Extremities WNL Transfers Roll Left to Right (QC): 6 Sit to Lying (QC): 6 Lying to Sitting/Side of Bed(Q: 6 Sit to Stand (QC): 3 Patient refuses to get into a chair, states he can't stand up but then stands up with min assist to pull up his underwear. Patient states he is wheelchair bound, nurse reports he ambulated to the restroom. He lays down independently. Balance Sitting Static: Good Sitting Dynamic: Good Standing Static: Poor Standing Dynamic: Poor Assessment/Needs Patient has impaired mobility, strength, endurance, balance. Patient in bed post tx with nurse aide still in the room. Patient has difficulty communicating or following directions, he needs min assist to stand, refuses out of bed activity. Rehab Potential: Poor PT [facility] Goals [facility] Goals PT Braille Translator Goals Time Frame: Feb 28, 2021 Roll Left & Right (QC): 6 Sit to Lying (QC): 6 Lying-Sitting on Side/Bed(QC): 6 Sit to Stand (QC): 3 Chair/Won-yz-Eovte Xfer(QC): 3 PT Plan Problem List Problem List: Activity Tolerance, Functional Strength, Safety, Balance, Gait, Transfer, Bed Mobility, ROM Treatment/Plan Treatment Plan: Continue Plan of Care Treatment Plan: Bed Mobility, Education, Functional Activity Sherly, Functional Strength, Safety, Therapeutic Exercise, Transfers Treatment Duration: Feb 28, 2021 Frequency: 6 times per week Estimated Hrs Per Day: .25 hour per day Patient and/or Family Agrees t: Yes Safety Risks/Education Patient Education: Correct Positioning, Safety Issues Teaching Recipient: Patient Teaching Methods: Demonstration, Discussion Response to Teaching: Reinforcement Needed Discharge Recommendations Plan Patient will perform bed mobility and transfer training, balance and endurance training, functional strengthening, gait training, and education, to improve functional mobility and independence at home. Therapy Discharge Recommendati: 24 Hour Supervision Time/GCodes Time In: 1515 Time Out: 1528 Total Billed Treatment Time: 13 Total Billed Treatment 1 visit STEFAN PRINCE PT Feb 21, 2021 15:35
[2021-02-21] MEDS: ENOXAPARIN 40 MG/0.4 ML (LOVENOX) SYR SQ SCH (16:55)
[2021-02-21] MEDS ORDERED: NICOTINE 21 MG (NICODERM) PATCH TD NR (17:30)
[2021-02-21] MEDS: ACETAMINOPHEN 500 MG TAB (TYLENOL) PO PRN (18:02)
[2021-02-21] MEDS ORDERED: ARTIFICAL TEARS 0.4 ML UNIT DOSE (REFRESH PLUS) OD PRN (19:00)
[2021-02-21 20:52] VITALS: BP 186/91
[2021-02-21] MEDS ORDERED: OMEPRAZOLE 20 MG (PriLOSEC) CAP NON-FORMULARY PO SCH (21:00)
[2021-02-21] MEDS: GABAPENTIN 600 MG (NEURONTIN) TAB PO SCH (21:32)
[2021-02-21] MEDS: PANTOPRAZOLE 20 MG TABLET (PROTONIX) PO SCH (21:33)
[2021-02-21] MEDS ORDERED: lisINopril 10 MG (PRINIVIL) TABLET PO ONE (22:30)
[2021-02-22] VITALS (7 sets, daily range): BP systolic 146–189; BP diastolic 71–90
[2021-02-22] MEDS: NS IV 1000 ML 1,000 ML IV SCH ×3 (02:59→14:52)
[2021-02-22 07:06] LABS: HEMATOCRIT 36 % (40-54); HEMOGLOBIN 12.6 g/dL (13.3-17.7); MEAN CORPUSCULAR HEMOGLOBIN 31 pg (25-34); MEAN CORPUSCULAR HGB CONC 35 g/dL (32-36); MEAN CORPUSCULAR VOLUME 90 fL (80-99); MEAN PLATELET VOLUME 9.1 fL (9.0-12.2); PLATELET COUNT 295 10^3/uL (130-400); WHITE BLOOD COUNT 9.6 10^3/uL (4.3-11.0)
[2021-02-22 07:25] LABS: ALBUMIN 3.7 GM/DL (3.2-4.5); BILIRUBIN,TOTAL 0.4 MG/DL (0.1-1.0); CALCIUM 9.1 MG/DL (8.5-10.1); CREATININE SERUM 0.95 MG/DL (0.60-1.30); POTASSIUM 3.7 MMOL/L (3.6-5.0); TOTAL PROTEIN 6.6 GM/DL (6.4-8.2)
[2021-02-22] MEDS ORDERED: NON-FORMULARY MEDICATION 1 EA EA (Meloxicam 15 MG) PO SCH (09:00)
[2021-02-22] MEDS ORDERED: lisINopril 10 MG (PRINIVIL) TABLET PO SCH (09:00)
[2021-02-22] MEDS: MELOXICAM 7.5 MG (MOBIC) TABLET PO SCH (09:44)
[2021-02-22] MEDS: lisINopril 10 MG (PRINIVIL) TABLET PO SCH (09:44)
[2021-02-22] MEDS: GABAPENTIN 600 MG (NEURONTIN) TAB PO SCH ×3 (09:44→20:50)
[2021-02-22] MEDS: NICOTINE PATCH REMOVAL TP SCH (09:46)
[2021-02-22] MEDS: NICOTINE 21 MG (NICODERM) PATCH TD SCH (09:46)
--- NOTE | 2021-02-22 12:09 | Physical Therapy Daily Note ---
PT Daily Note-Current Subjective Pt. in bed, initially resistive to Rx but with encouragement pt. agrees to bed ex and sit EOB and standing. Pt very emotional speaking of family and his family history of Huntingtons disease and that he hopes no one else in his family dies from it and that his grandchildren dont have it "None of them will see me or talk to me" Pain Location: No Pain Reported Mental Status Patient Orientation: Person Transfers SCALE: Activities may be completed with or without assistive devices. 9-Kfumuubytw-hsvzrbl completes the activity by him/herself with no assistance from a helper. 5-Set-up or Clean-up Assistance-helper sets up or cleans up; patient completes activity. [place] assists only prior to or following the activity. 4-Supervision or Touching Assistance-helper provides verbal cues and/or touching/steadying and/or contact guard assistance as patient completes activity. Assistance may be provided throughout the activity or intermittently. 3-Partial/Moderate Assistance-helper does LESS THAN HALF the effort. [place] lifts, holds or supports trunk or limbs, but provides less than half the effort. 2-Substantial/Maximal Assistance-helper does MORE THAN HALF the effort. [place] lifts or holds trunk or limbs and provides more than half the effort. 1-Dqgovopds-fymjqf does ALL the effort. Patient does none of the effort to complete the activity. Or, the assistance of 2 or more helpers is required for the patient to complete the activity. If activity was not attempted, code reason: 7-Patient Refused. 9-Not Applicable-not attempted and the patient did not perform the activity before the current illness, exacerbation or injury. 10-Not Attempted due to Environmental Limitations-(lack of equipment, weather restraints, etc.). 88-Not Attempted due to Medical Conditions or Safety Concerns. sup to sit and sit to stand all CGA Gait Training pt. ambulated dance fashion 3-4 steps at bedside back and forth with min assist Exercises Supine Ex: Ankle pumps, Rolling, Heel Slides, Straight leg raise, Hip abd/add Supine Reps: 12 Seated Therapy Exercises: Sit to stand, Long arc quads Seated Reps: 10 Assessment Current Status: Good Progress PT Shelter Goals Test Architect Goals PT Test Architect Goals Time Frame: Feb 28, 2021 Roll Left & Right (QC): 6 Sit to Lying (QC): 6 Lying-Sitting on Side/Bed(QC): 6 Sit to Stand (QC): 3 Chair/Ikf-ve-Ocjwc Xfer(QC): 3 PT Plan Treatment/Plan Treatment Plan: Continue Plan of Care Treatment Plan: Bed Mobility, Education, Functional Activity Sherly, Functional Strength, Safety, Therapeutic Exercise, Transfers Treatment Duration: Feb 28, 2021 Frequency: 6 times per week Estimated Hrs Per Day: .25 hour per day Patient and/or Family Agrees t: Yes Safety Risks/Education Patient Education: Transfer Techniques, Correct Positioning, Disease Process Teaching Recipient: Patient Teaching Methods: Demonstration, Discussion Response to Teaching: Verbalize Understanding, Return Demonstration, Reinforcement Needed Time/GCodes Time In: 1100 Time Out: 1120 Total Billed Treatment Time: 20 Total Billed Treatment 1,FA20m ALBERTA OLIVAS LAGGING MACHINE OPERATOR Feb 22, 2021 12:09
--- NOTE | 2021-02-22 14:07 | Progress Note ---
Subjective Subjective/Events-last exam Pt states he is feeling somewhat better. He is more clear this morning than he was yesterday, and moving around in bed more easily as well. He is worried he may have given his brother tuberculosis, I reassured him we don't even know that he has active tb at this time. Objective Exam Last Set of Vital Signs Vital Signs Date Time Temp Pulse Resp B/P (MAP) Pulse Ox O2 Delivery O2 Flow Rate FiO2 02/22/21 12:52 66 02/22/21 12:00 36.8 18 174/71 (105) 97 Room Air Capillary Refill : Less Than 3 Seconds I&O Intake and Output 02/22/21 00:00 Intake Total 2654 ml Output Total 1500 ml Balance 1154 ml Intake Oral 1654 ml IV Total 1000 ml Output Urine Total 1500 ml # Voids 2 General: Alert, No Acute Distress Lungs: Other (coughing spasm with deep breath) Heart: Regular Rate Neuro: Normal Speech Psych/Mental Status: Other (labile mood, occasionally bursts into tears) Results/Procedures Lab Laboratory Tests 02/22/21 06:33: White Blood Count 9.6, Red Blood Count 4.04L, Hemoglobin 12.6L, Hematocrit 36L, Mean Corpuscular Volume 90, Mean Corpuscular Hemoglobin 31, Mean Corpuscular Hemoglobin Concent 35, Red Cell Distribution Width 14.2, Platelet Count 295, Mean Platelet Volume 9.1, Sodium Level 139, Potassium Level 3.7, Chloride Level 106, Carbon Dioxide Level 22, Anion Gap 11, Blood Urea Nitrogen 14, Creatinine 0.95, Estimat Glomerular Filtration Rate 80, BUN/Creatinine Ratio 15, Glucose Level 93, Calcium Level 9.1, Corrected Calcium 9.3, Total Bilirubin 0.4, Aspartate Amino Transf (AST/SGOT) 16, Alanine Aminotransferase (ALT/SGPT) 14, Alkaline Phosphatase 86, Total Protein 6.6, Albumin 3.7 Microbiology 02/21/21 Gram Stain, Resulted Pending 02/21/21 Sputum Culture - Preliminary, Resulted Radiology CT head and cervical spine 02/20/21: IMPRESSION: Stable chronic changes. No acute intracranial process is detected. IMPRESSION: 1. Cervical spondylosis. No acute fractures identified. 2. 2 cm cavitary mass in the left lung apex. Dedicated CT chest would be recommended for further characterization. CT chest 02/20/21: IMPRESSION: 1. Left apical cavity with mild wall thickening and internal septations. This is favored to represent sequela of a prior infection. 4-8 week follow-up is recomme nded to ensure stability. CTA head 02/20/21: IMPRESSION: 1. No stenosis or aneurysm in the [place]. No evidence of large vessel occlusion. 2. No stenosis or dissection the bilateral carotid and vertebral arteries. 3. Cavitary lesion in the left lung apex measuring 2.7 x [address] of the chest to further evaluate. Assessment/Plan Assessment/Plan (1) Altered mental status Status: Acute Assessment & Plan: Suspect secondary to substance use, appears to be improving, unclear what baseline is, but he is able to state name, location and basically why he is in the hospital this morning. 02/22 continues to improve, today is oriented x 3 and also able to give details of why he is in the hospital and his concern about if he has tb that he has given it to others Qualifiers: Qualified Codes: R41.82 - Altered mental status, unspecified (2) COPD (chronic obstructive pulmonary disease) Status: Chronic Assessment & Plan: No evidence of acute exacerbation, monitor, resume home albuterol (3) Hypertension Status: Chronic Assessment & Plan: Resume home lisinopril Qualifiers: Qualified Codes: I10 - Essential (primary) hypertension (4) Anxiety Status: Chronic Assessment & Plan: Hold home alprazolam for now given altered mental status (5) Chronic pain Status: Chronic Assessment & Plan: Holding home hydrocodone due to altered mental status (6) Huntingtons chorea Status: Acute (7) Polysubstance abuse Status: Acute Assessment & Plan: Urine drug screen positive for methamphetamines on admit. Prescribed opiates and benzodiazepines outpatient. (8) Cavitary lesion of lung Status: Acute Assessment & Plan: Unclear etiology, may be post-infectious, but given risks for tb and some symptoms, will check sputum and quantiferon gold. Labs pending, sputum x 2 done and pending. (9) Generalized weakness Status: Chronic Assessment & Plan: PT, [facility] reporting [facility], discussed with social media manager. (10) DVT prophylaxis Status: Acute Assessment & Plan: Enoxaparin UMESH AGUILAR MD Feb 22, 2021 14:07
[2021-02-22] MEDS: ENOXAPARIN 40 MG/0.4 ML (LOVENOX) SYR SQ SCH (14:52)
[2021-02-22] MEDS ORDERED: amLODIPine 5 MG (NORVASC) TAB PO SCH (17:45)
[2021-02-22] MEDS ORDERED: amLODIPine 5 MG (NORVASC) TAB ONE (18:25)
[2021-02-22] MEDS: PANTOPRAZOLE 20 MG TABLET (PROTONIX) PO SCH (20:50)
[2021-02-23 00:50] VITALS: BP 184/85
[2021-02-23] MEDS: NS IV 1000 ML 1,000 ML IV SCH (00:56)
[2021-02-23 04:15] VITALS: BP 194/86
[2021-02-23 06:04] LABS: HEMATOCRIT 38 % (40-54); HEMOGLOBIN 12.9 g/dL (13.3-17.7); MEAN CORPUSCULAR HEMOGLOBIN 31 pg (25-34); MEAN CORPUSCULAR HGB CONC 34 g/dL (32-36); MEAN CORPUSCULAR VOLUME 91 fL (80-99); MEAN PLATELET VOLUME 9.7 fL (9.0-12.2); PLATELET COUNT 289 10^3/uL (130-400)
[2021-02-23 06:25] LABS: POTASSIUM 3.6 MMOL/L (3.6-5.0)
[2021-02-23 06:26] LABS: CALCIUM 8.9 MG/DL (8.5-10.1)
[2021-02-23 06:31] LABS: CREATININE SERUM 0.95 MG/DL (0.60-1.30)
[2021-02-23 08:00] VITALS: BP 174/80
[2021-02-23] MEDS: GABAPENTIN 600 MG (NEURONTIN) TAB PO SCH ×3 (08:43→22:08)
[2021-02-23] MEDS: lisINopril 10 MG (PRINIVIL) TABLET PO SCH (08:43)
[2021-02-23] MEDS: NICOTINE PATCH REMOVAL TP SCH (08:43)
[2021-02-23] MEDS: MELOXICAM 7.5 MG (MOBIC) TABLET PO SCH (08:43)
[2021-02-23] MEDS: amLODIPine 5 MG (NORVASC) TAB PO SCH (08:44)
[2021-02-23] MEDS: NICOTINE 21 MG (NICODERM) PATCH TD SCH (08:44)
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
[2021-02-23 12:00] VITALS: BP 150/72
[2021-02-23 15:30] VITALS: BP 166/82
[2021-02-23] MEDS: ENOXAPARIN 40 MG/0.4 ML (LOVENOX) SYR SQ SCH (16:18)
[2021-02-23 19:22] VITALS: BP 185/92
[2021-02-23] MEDS: PANTOPRAZOLE 20 MG TABLET (PROTONIX) PO SCH (22:07)
[2021-02-24] VITALS (7 sets, daily range): BP systolic 130–184; BP diastolic 60–84
[2021-02-24] MEDS: ACETAMINOPHEN 500 MG TAB (TYLENOL) PO PRN (06:55)
[2021-02-24] MEDS: GABAPENTIN 600 MG (NEURONTIN) TAB PO SCH ×3 (08:26→22:02)
[2021-02-24] MEDS: lisINopril 10 MG (PRINIVIL) TABLET PO SCH (08:27)
[2021-02-24] MEDS: amLODIPine 5 MG (NORVASC) TAB PO SCH (08:27)
[2021-02-24] MEDS: MELOXICAM 7.5 MG (MOBIC) TABLET PO SCH (08:27)
[2021-02-24] MEDS: NICOTINE 21 MG (NICODERM) PATCH TD SCH (08:27)
[2021-02-24] MEDS: NICOTINE PATCH REMOVAL TP SCH (08:28)
--- NOTE | 2021-02-24 08:59 | Physical Therapy Daily Note ---
PT Daily Note-Current Subjective Patient in bed pre tx, agrees to PT, states he has pain no different that it always is. Appearance Patient in recliner post tx with nurse call, phone, tray, all needs met. Mental Status Patient Orientation: Person, Place, Situation Transfers SCALE: Activities may be completed with or without assistive devices. 7-Xdutnjdjpk-rcpockn completes the activity by him/herself with no assistance from a helper. 5-Set-up or Clean-up Assistance-helper sets up or cleans up; patient completes activity. [place] assists only prior to or following the activity. 4-Supervision or Touching Assistance-helper provides verbal cues and/or touching/steadying and/or contact guard assistance as patient completes activity. Assistance may be provided throughout the activity or intermittently. 3-Partial/Moderate Assistance-helper does LESS THAN HALF the effort. [place] lifts, holds or supports trunk or limbs, but provides less than half the effort. 2-Substantial/Maximal Assistance-helper does MORE THAN HALF the effort. [place] lifts or holds trunk or limbs and provides more than half the effort. 0-Dofrlvbcc-mkkyvj does ALL the effort. Patient does none of the effort to complete the activity. Or, the assistance of 2 or more helpers is required for the patient to complete the activity. If activity was not attempted, code reason: 7-Patient Refused. 9-Not Applicable-not attempted and the patient did not perform the activity before the current illness, exacerbation or injury. 10-Not Attempted due to Environmental Limitations-(lack of equipment, weather restraints, etc.). 88-Not Attempted due to Medical Conditions or Safety Concerns. Roll Left & Right (QC): 6 Lying to Sitting/Side of Bed(Q: 6 Sit to Stand (QC): 3 Chair/Puu-yq-Vvibn Xfer(QC): 3 Gait Training Distance: 5' Gait Persons Needed: 1 Gait Assistive Device: Handheld Assist slow, uncoordinated, slumped posture Exercises Seated Therapy Exercises: Ankle pumps, Long arc quads Seated Reps: 20 Treatments bed mobility and transfers, ambulation, LE strengthening Assessment Current Status: Fair Progress slowly improving functional mobility PT Fdc Goals Fdc Goals PT Title I Coordinator Goals Time Frame: Feb 28, 2021 Roll Left & Right (QC): 6 Sit to Lying (QC): 6 Lying-Sitting on Side/Bed(QC): 6 Sit to Stand (QC): 3 Chair/Fpq-yn-Pnihz Xfer(QC): 3 PT Plan Problem List Problem List: Activity Tolerance, Functional Strength, Safety, Balance, Gait, Transfer, Bed Mobility, ROM Treatment/Plan Treatment Plan: Continue Plan of Care Treatment Plan: Bed Mobility, Education, Functional Activity Sherly, Functional Strength, Safety, Therapeutic Exercise, Transfers Treatment Duration: Feb 28, 2021 Frequency: 6 times per week Estimated Hrs Per Day: .25 hour per day Patient and/or Family Agrees t: Yes Safety Risks/Education Patient Education: Gait Training, Transfer Techniques, Correct Positioning, Safety Issues Teaching Recipient: Patient Teaching Methods: Demonstration, Discussion Response to Teaching: Reinforcement Needed Time/GCodes Time In: 827 Time Out: 839 Total Billed Treatment Time: 12 Total Billed Treatment 1 visit FA 12 STEFAN JUNG PT Feb 24, 2021 08:59
[2021-02-24] MEDS ORDERED: cloNIDine 0.1 MG (CATAPRES) TAB PO PRN (09:15)
--- NOTE | 2021-02-24 10:43 | Progress Note - Hospitalist ---
AVERY EMERSON MED STUDENT 02/24/21 1043: Subjective HPI/CC On Admission Date Seen by Provider: Feb 24, 2021 Time Seen by Provider: 08:00 Subjective/Events-last exam Mr. Knight is sitting up this morning in bed. He states he has is chronic pain but its about the same as it usually is. States his last BM was last night. No bowel or bladder concerns. He is concerned about having TB. Denies fever, chills, SOB, CP, N/V/D. He is hesitant about going to [facility]. Review of Systems General: No Chills, No Night Sweats HEENT: No Head Aches, No Visual Changes, No Dysphasia Pulmonary: No Dyspnea, No Cough, No Pleuritic Chest Pain Cardiovascular: No: Chest Pain, Palpitations, Edema Gastrointestinal: No: Nausea, Vomiting, Abdominal Pain, Diarrhea, Constipation Genitourinary: No Dysuria, No Frequency, No Hematuria Musculoskeletal: other (generalized chronic pain) Neurological: No: Weakness, Numbness Objective Exam Vital Signs Vital Signs Date Time Temp Pulse Resp B/P (MAP) Pulse Ox O2 Delivery O2 Flow Rate FiO2 02/24/21 08:33 35.1 64 20 175/81 (112) 95 Room Air Capillary Refill : Less Than 3 Seconds General Appearance: No Apparent Distress, Chronically ill HEENT: PERRL/EOMI, Moist Mucous Membranes Neck: Supple Respiratory: Chest Non Tender, Lungs Clear, Normal Breath Sounds, No Accessory Muscle Use, No Respiratory Distress Cardiovascular: Regular Rate, Rhythm, No Edema, No Murmur, Normal Peripheral Pulses Gastrointestinal: Normal Bowel Sounds, No Organomegaly, No Pulsatile Mass, Non Tender, Soft Rectal: Deferred Extremity: Normal Capillary Refill, Normal Inspection, Non Tender, No Calf Tenderness, No Pedal Edema Neurologic/Psychiatric: Alert, Oriented x3, Normal Mood/Affect Skin: Normal Color, Warm/Dry Results/Procedures Lab Patient resulted labs reviewed. Assessment/Plan Assessment and Plan Assess & Plan/Chief Complaint AMS -Pt is alert and oriented this morning -Not sure of baseline but pt seems to be resolved of this issue COPD -Receiving breathing treatments -No complaints of CP/SOB HTN Meth use -On Lisinopril, Amlodipine, HCTZ -173/68 this morning, but also chronic meth user Lung Lesion/Possible TB -Will test for TB, 5 day wait for results Pt hesitant to DC to [facility], may have to find alternative. Supervisory-Addendum Brief Verification & Attestation Participated in pt care: history, physical Personally performed: exam Care discussed with: Medical Student Procedures: n/a n/a MAGGIE HUNTER DO 02/25/21 0530: Subjective Subjective/Events-last exam Pt doing well Has Huntingtons Disease Altered mental status is now cleared Cavitary lesion will require TB rule-out TB-gold test will be back tomorrow or Wednesday PT and OT will be ordered Pt was doing meth in a car when they found him Restarted all of his home medicine Review of Systems General: Fatigue, Malaise Objective Exam General Appearance: No Apparent Distress, WD/WN, Chronically ill, Thin Respiratory: Lungs Clear, Normal Breath Sounds Cardiovascular: Regular Rate, Rhythm Neurologic/Psychiatric: Alert, Oriented x3 Assessment/Plan Assessment and Plan Assess & Plan/Chief Complaint Altered mental status Meth use Naima's disease Cavitary lung lesion awaiting TB Gold test Supervisory-Addendum Brief Verification & Attestation Participated in pt care: history, MDM, physical Personally performed: exam, history, MDM, supervision of care Care discussed with: Medical Student Procedures: n/a Results interpretation: Verified all documentation Verification and Attestation of Medical Student E/M Service A medical student performed and documented this service in my presence. I reviewed and verified all information documented by the medical student and made modifications to such information, when appropriate. I personally performed the physical exam and medical decision making. Maggie Hunter, Feb 25, 2021,05:30 AVERY EMERSON MED STUDENT Feb 24, 2021 10:43 MAGGIE HUNTER DO Feb 25, 2021 05:30
[2021-02-24] MEDS ORDERED: ALPRAZolam 0.5 MG (XANAX) TAB PO PRN (11:15)
[2021-02-24] MEDS: HYDROcodone/APAP 7.5 MG/325 MG (LORTAB, LORCET PLUS) TABLET PO PRN ×2 (12:52→22:03)
--- NOTE | 2021-02-24 14:58 | Occupational Therapy Eval ---
OT Evaluation-General/PLF Medical Diagnosis Admission Date Feb 23, 2021 at 14:22 Medical Diagnosis: AMS, COPD Onset Date: Feb 20, 2021 Therapy Diagnosis Therapy Diagnosis: decreased ADL status Precautions Precautions/Isolations: Airborne Isolation, Fall Prevention, Standard Precautions Referral Physician: Wendy Crain Reason: Evaluation/Treatment Medical History Additional Medical History Naima's disease COPD HTN Chronic pain Anxiety Depression Current History Family found pt altered in his car after reportedly using methamphetamies. Social History unknown at this time. ADL-Prior Level of Function SCALE: Activities may be completed with or without assistive devices. 3-Gixbwoifhm-imzvdyt completes the activity by him/herself with no assistance from a helper. 5-Set-up or Clean-up Assistance-helper sets up or cleans up; patient completes activity. [place] assists only prior to or following the activity. 4-Supervision or Touching Assistance-helper provides verbal cues and/or touching/steadying and/or contact guard assistance as patient completes activity. Assistance may be provided throughout the activity or intermittently. 3-Partial/Moderate Assistance-helper does LESS THAN HALF the effort. [place] lifts, holds or supports trunk or limbs, but provides less than half the effort. 2-Substantial/Maximal Assistance-helper does MORE THAN HALF the effort. [place] lifts or holds trunk or limbs and provides more than half the effort. 2-Glifjgckf-zglkvo does ALL the effort. Patient does none of the effort to complete the activity. Or, the assistance of 2 or more helpers is required for the patient to complete the activity. If activity was not attempted, code reason: 7-Patient Refused. 9-Not Applicable-not attempted and the patient did not perform the activity before the current illness, exacerbation or injury. 10-Not Attempted due to Environmental Limitations-(lack of equipment, weather restraints, etc.). 88-Not Attempted due to Medical Conditions or Safety Concerns. ADL PLOF Comments Pt reports being independent with ADLs and mobility at PLOF. He initially states he uses 2 canes for mobility, later indicates he uses a w/c around the house, and at one point in the conversation indicates he uses a walker. Pt indicates IND with ADLs at baseline. Self Care: Needed Some Help Functional Cognition: Needed Some Help OT Current Status Subjective Pt in recliner, agreeable to OT evaluation/tx. Pt indicates he has completed his exercises earlier. OT educated pt on purpose/benefit of OT vs PT. Mental Status/Objective Patient Orientation: Person, Place, Situation Current Upper Extremity ROM WFL, BUE shoulder flexion to approx 160 degrees. Upper Extremity Coordination WFL Upper Extremity Sensation WFL Upper Extremity Strength grossly 3+/5 ADL-Treatment Eating (QC): 6 (Per pt report.) Shower/Bathe Self (QC): 3 (Min A with feet for safety per nursing report.) On/Off Footwear (QC): 6 (Pt IND with doffing/donning gripper socks.) Other Treatments Pt seated in recliner, agreeable to OT evaluation. Pt provided information about PLOF to his ability, accuracy of information unknown at this time. Pt able to doff/don gripper socks independently, declined shower due to getting cleaned up earlier this morning. Pt agreeable to BUE exercises in order to increase strength and activity tolerance. Pt completed x25 reps shoulder flexion and front punch. Pt required cues throughout session to slow down as he completes all tasks at a fast pace. Post tx, pt up in recliner, call light in reach and all needs met. Education OT Patient Education: Correct positioning, Energy conservation, Exercise program, Modified ADL techniques, Progress toward Goal/Update tx plan, Purpose of tx/functional activities, Rehab process Teaching Recipient: Patient Teaching Methods: Discussion Response to Teaching: Verbalize Understanding OT Barrel Charrer Goals Barrel Charrer Goals Time Frame: Mar 07, 2021 Eating (QC): 6 Oral Hygiene (QC): 6 Toileting Hygiene (QC): 4 Shower/Bathe Self (QC): 4 Upper Body Dressing (QC): 5 Lower Body Dressing (QC): 4 On/Off Footwear (QC): 6 Additional Goals: 1-Demonstrate ADL Tasks, 2-Verbalize Understanding, 3- ImproveStrength/Sherly 1=Demonstrate adherence to instructed precautions during ADL tasks. 2=Patient will verbalize/demonstrate understanding of assistive devices/modifications for ADL. 3=Patient will improve strength/tolerance for activity to enable patient to perform ADL's. OT Education/Plan Problem List/Assessment Assessment: Decreased Activ Tolerance, Decreased Safety Aware, Decreased UE Strength, Impaired Funct Balance, Impaired I ADL's, Impaired Self-Care Skills Discharge Recommendations Plan/Recommendations: Continue POC Treatment Plan/Plan of Care Patient would benefit from OT for education, treatment and training to promote independence in ADL's, mobility, safety and/or upper extremity function for ADL's. Plan of Care: ADL Retraining, Functional Mobility, UE Funct Exercise/Act Treatment Duration: Mar 07, 2021 Frequency: 3 times per week (3-5 times per week) Estimated Hrs Per Day: .25 hour per day Agreement: Yes Rehab Potential: Fair Time/GCodes Start Time: 14:35 Stop Time: 14:48 Total Time Billed (hr/min): 13 Billed Treatment Time 1, MACKENZIE MARTINEZ OT Feb 24, 2021 14:58
[2021-02-24] MEDS: ENOXAPARIN 40 MG/0.4 ML (LOVENOX) SYR SQ SCH (15:36)
[2021-02-24] MEDS ORDERED: traZODone 150 MG (DESYREL) TABLET PO SCH (21:00)
[2021-02-24] MEDS: PANTOPRAZOLE 20 MG TABLET (PROTONIX) PO SCH (22:02)
[2021-02-25 03:01] VITALS: BP 138/67
[2021-02-25] MEDS ORDERED: HYDR25TA4 PO (06:01)
[2021-02-25] MEDS ORDERED: CEFD300C3 PO (06:01)
[2021-02-25] MEDS ORDERED: AMLO-250 PO (06:01)
[2021-02-25] MEDS ORDERED: LISI10TA25 PO (06:01)
--- NOTE | 2021-02-25 06:02 | Discharge Summary ---
Discharge Summary Hospital Course Was the Problem List Reviewed?: Yes Problems/Dx: (1) Acute bronchitis due to Streptococcus pneumoniae (2) Altered mental status Status: Resolved Qualifiers: Qualified Codes: R41.82 - Altered mental status, unspecified (3) Huntingtons chorea Status: Acute (4) Polysubstance abuse Status: Acute (5) Cavitary lesion of lung Status: Acute (6) COPD (chronic obstructive pulmonary disease) Status: Chronic (7) Anxiety Status: Chronic (8) Hypertension Status: Chronic Qualifiers: Qualified Codes: I10 - Essential (primary) hypertension (9) Chronic pain Status: Chronic (10) DVT prophylaxis Status: Acute (11) Generalized weakness Status: Chronic Hospital Course Date of Admission: Feb 23, 2021 at 14:22 Admission Diagnosis : Family Physician/Provider: Date of Discharge: 02/25/21 Discharge Diagnosis: Altered mental status, meth use, Naima's disease, cavitary lesion of lung but negative TB Gold test, strep pneumo bronchitis Hospital Course: Hospital Course: Pt had an uneventful hospital course for 3 days when he was admitted for altered mental status doing meth in his car. He was found to cav itory lung lesion TB gold test was drawn, negative results. Pt was taken out of isolation, strep pneumo on sputum culture met criteria for [place] at [place]. He decided not to go to the long-term and wanted to go back to his granddaughter. Labs and Pending Lab Test: Microbiology 02/22/21 Mycobacterial Culture - Preliminary, Resulted Home Meds Active Reported Lisinopril 10 Mg Tablet 10 Mg PO DAILY Gabapentin 600 Mg Tablet 1,200 Mg PO TID TAKES 2 (600MG) TABS Omeprazole 20 Mg Capsule.dr 20 Mg PO HS Meloxicam 15 Mg Tablet 15 Mg PO DAILY Oxybutynin Chloride ER (Oxybutynin Chloride) 5 Mg Tab.er.24 5 Mg PO DAILY Trazodone HCl 150 Mg Tablet 150 Mg PO HS Alprazolam 0.5 Mg Tablet 0.5 Mg PO Q8H PRN Ventolin Hfa (Albuterol Sulfate) 18 Gm Hfa.aer.ad 1 Puff INH Q4H PRN Hydrocodone-Acetamin 7.5-325 (Hydrocodone/Acetaminophen) 1 Each Tablet 1 Ea PO QID PRN Assessment/Pt Instructions PCP in 1 week Discharge Planning: <30 minutes discharge planning Discharge Physical Examination Vital Signs Vital Signs Date Time Temp Pulse Resp B/P (MAP) Pulse Ox O2 Delivery O2 Flow Rate FiO2 02/25/21 03:01 36.4 63 20 138/67 (90) 95 Room Air General Appearance: No Apparent Distress, WD/WN, Chronically ill Respiratory: Lungs Clear, Normal Breath Sounds Cardiovascular: Regular Rate, Rhythm Neurologic/Psychiatric: Alert, Oriented x3 Allergies: Coded Allergies: No Known Drug Allergies (Unverified , 02/20/21) Discharge Summary Date of Admission Feb 23, 2021 at 14:22 Date of Discharge Discharge Date: Feb 25, 2021 Discharge Diagnosis Altered mental status Meth use Zapata's disease Cavitary lung lesion awaiting TB Gold test EDY HUNTER DO Feb 25, 2021 06:02
[2021-02-25 06:24] LABS: BASOPHILS # (AUTO) 0.1 10^3/uL (0.0-0.1); BASOPHILS % (AUTO) 1 % (0-10); EOSINOPHILS # (AUTO) 0.7 10^3/uL (0.0-0.3); EOSINOPHILS % (AUTO) 6 % (0-10); HEMATOCRIT 39 % (40-54); HEMOGLOBIN 13.4 g/dL (13.3-17.7); LYMPHOCYTES # (AUTO) 2.6 10^3/uL (1.0-4.0); LYMPHOCYTES % (AUTO) 21 % (12-44); MEAN CORPUSCULAR HEMOGLOBIN 31 pg (25-34); MEAN CORPUSCULAR HGB CONC 34 g/dL (32-36); MEAN CORPUSCULAR VOLUME 90 fL (80-99); MONOCYTES % (AUTO) 9 % (0-12); NEUTROPHILS # (AUTO) 7.7 10^3/uL (1.8-7.8); NEUTROPHILS % (AUTO) 63 % (42-75); PLATELET COUNT 312 10^3/uL (130-400); WHITE BLOOD COUNT 12.2 10^3/uL (4.3-11.0)
[2021-02-25 06:31] LABS: ALBUMIN 3.9 GM/DL (3.2-4.5)
[2021-02-25 06:32] LABS: POTASSIUM 4.4 MMOL/L (3.6-5.0)
[2021-02-25 06:33] LABS: CALCIUM 9.6 MG/DL (8.5-10.1)
[2021-02-25 06:34] LABS: TOTAL PROTEIN 6.9 GM/DL (6.4-8.2)
[2021-02-25 06:36] LABS: BILIRUBIN,TOTAL 0.3 MG/DL (0.1-1.0)
[2021-02-25 06:38] LABS: CREATININE SERUM 1.25 MG/DL (0.60-1.30)
[2021-02-25 07:41] VITALS: BP 120/66
[2021-02-25] MEDS ORDERED: CEFDINIR 300 MG (OMNICEF) CAP PO SCH (09:00)
[2021-02-25] MEDS ORDERED: OXYBUTYNIN (DITROPAN) 5 MG TAB PO SCH (09:00)
[2021-02-25] MEDS: MELOXICAM 7.5 MG (MOBIC) TABLET PO SCH (10:19)
[2021-02-25] MEDS: NICOTINE 21 MG (NICODERM) PATCH TD SCH (10:19)
[2021-02-25] MEDS: lisINopril 10 MG (PRINIVIL) TABLET PO SCH (10:19)
[2021-02-25] MEDS: amLODIPine 5 MG (NORVASC) TAB PO SCH (10:20)
[2021-02-25] MEDS: NICOTINE PATCH REMOVAL TP SCH (10:20)
[2021-02-25] MEDS: GABAPENTIN 600 MG (NEURONTIN) TAB PO SCH ×2 (10:20→12:31)
--- NOTE | 2021-02-25 11:11 | Progress Note ---
AVERY EMERSON MED STUDENT 02/25/21 1111: Progress Note Mr. Knight is a 65 yo male with hx of Meth use, COPD, HTN, neuropathy, Reflux, and huntingtons that presented to the ER on 02/20 for AMS. He was found in a car and couldn't walk. He had been using meth and had a history of huntingtons and it was unclear at the time what symptoms were from substance abuse and which were from huntingtons. He had also recently fallen and hit his head. He was worked up and CT showed no acute head injury but he did have a lesion noted in lung thought possibly to be TB. He received quantiferon gold test that resulted on 02/25 as negative. He was admitted to be watched closely. He was treated for his substance abuse and HTN which were well controlled during his stay. He did not have any complications with his hospital course and with the negative quantiferon test he was discharged on 02/25 to his daughters house. MAGGIE HUNTER DO 02/26/21 0610: Supervisory-Addendum Brief Verification & Attestation Participated in pt care: history, MDM, physical Personally performed: exam, history, MDM, supervision of care Care discussed with: Medical Student Procedures: n/a Results interpretation: Verified all documentation Verification and Attestation of Medical Student E/M Service A medical student performed and documented this service in my presence. I reviewed and verified all information documented by the medical student and made modifications to such information, when appropriate. I personally performed the physical exam and medical decision making. Maggie Hunter Feb 26, 2021,06:10 AVERY EMERSON MED STUDENT Feb 25, 2021 11:11 MAGGIE HUNTER DO Feb 26, 2021 06:10
--- NOTE | 2021-02-25 13:14 | Occ Therapy Progress Note ---
Therapy Progress Note OT attempted tx. Pt currently eating breakfast stating his granddaughter is on her way to pick him up, as he is planning on discharging today. OT educated pt on the purpose/benefits of OT, but he continued to decline tx. OT will attempt tx again tomorrow if pt is still admitted. 1, visit 1310 MACKENZIE SIMON OT Feb 25, 2021 13:14
== END 2021-02-25 13:40 | disposition home or self-care (01) | DRG 897 ==
LOC: EDUNIT# 09:17 → ER 09:23 → 4TH 14:58 → OBSVTOIN 02-23 14:22
PROVIDERS: ADMIT Family Medicine; ATTEND Internal Medicine
PROC: 8E0ZXY6 Isolation (ICD-10-PCS; principal; 2021-02-23)
DX: F15.129 Other stimulant abuse with intoxication, unspecified (principal); G10 Huntington's disease; J44.0 Chronic obstructive pulmonary disease with (acute) lower respiratory infection; J20.2 Acute bronchitis due to streptococcus; R41.82 Altered mental status, unspecified; J98.4 Other disorders of lung; F12.90 Cannabis use, unspecified, uncomplicated; F17.210 Nicotine dependence, cigarettes, uncomplicated; Z66 Do not resuscitate; I10 Essential (primary) hypertension; G62.9 Polyneuropathy, unspecified; F41.9 Anxiety disorder, unspecified; K21.9 Gastro-esophageal reflux disease without esophagitis
CPT/HCPCS: 36415; 70450; 70496; 70498; 71250; 72125; 80048; 80053; 80306; 80320; 80329; 81000; 82375; 83735; 84443; 85007; 85025; 85027; 86141; 86480; 87015; 87070; 87077; 87116; 87181; 87184; 87205; 87206; 94760; G0378